=== PATIENT | female | born 1980 | race Caucasian/White ===

== ENCOUNTER 2017-02-03 10:05 | Emergency (ER) | payer SELFPAY ==
[2017-02-03 11:06] LABS: APPEARANCE SLT CLOUDY (CLEAR); BILIRUBIN NEGATIVE (NEGATIVE); COLOR YELLOW (YELLOW); GLUCOSE NEGATIVE (NEGATIVE); KETONE NEGATIVE (NEGATIVE); LEUKOCYTE ESTERASE 2+ (NEGATIVE); NITRITE NEGATIVE (NEGATIVE); PROTEIN NEGATIVE (NEGATIVE); RED CELLS - URINE 0-5 /hpf (0-5); SPECIFIC GRAVITY 1.015 (1.005-1.020); UROBILINOGEN NORMAL (NORMAL)
[2017-02-03 11:07] LABS: BACTERIA MODERATE /hpf (NONE SEEN); MUCUS <1+ /lpf (NONE SEEN)
[2017-02-03 11:24] LABS: HCG SERUM POSITIVE (NEGATIVE)
[2017-02-03 12:05] LABS: BASOPHILS 0.1 % (0-2); EOSINOPHILS 0.3 % (0-7); HEMATOCRIT 38.9 % (36.0-48.0); HEMOGLOBIN 13.1 g/dL (12-16); IMMATURE GRANULOCYTES 0.2 % (0-5); LYMPHOCYTES 23.5 % (15-50); MCHC 33.7 g/dL (31.0-37.0); MCV 92.2 fL (80.0-100.0); MONOCYTES 5.8 % (2-11); NEUTROPHILS 70.1 % (40-80); RBC 4.22 10x6/uL (4.00-5.40); RDW 13.6 % (11.5-14.5); WBC 8.7 10x3/uL (4.8-10.8)
[2017-02-03 12:07] LABS: PLATELET COUNT 217 10x3/uL (130-400)
== END 2017-02-03 13:32 | disposition home or self-care (01) ==
LOC: D.ER 10:05
PROVIDERS: Emergency Medicine
DX: O23.41 Unspecified infection of urinary tract in pregnancy, first trimester (principal); Z3A.11 11 weeks gestation of pregnancy

== ENCOUNTER → 2017-06-15 16:58 | Outpatient (CLI) | payer MEDICAID | END | disposition home or self-care (01) | LOC: D.LDO 16:58 | DX: O26.899 Other specified pregnancy related conditions, unspecified trimester (principal); Z3A.00 Weeks of gestation of pregnancy not specified ==

== ENCOUNTER → 2017-07-29 10:46 | Outpatient (CLI) | payer MEDICAID ==
[~2017-07-29 10:46] MED LIST: HYDROCODON-ACE1 EAC7 PO; MOTRIN600 MG PO; PRENATAL COMPLE1 TAB PO
[2017-08-25 13:34] VITALS: BMI 30.8
== END | disposition home or self-care (01) ==
LOC: D.LDO 10:46
DX: O26.893 Other specified pregnancy related conditions, third trimester (principal); Z3A.36 36 weeks gestation of pregnancy

== ENCOUNTER 2017-08-24 09:28 | Inpatient (IN) | payer MEDICAID ==
[~2017-08-24] VITALS: Ht 162.6 cm; Wt 81.2 kg
[2017-08-24 11:05] VITALS: BP 136/75; BMI 30.8
[2017-08-24] MEDS ORDERED: PRENATAL COMPLE1 TAB PO (11:05)
[2017-08-24 11:29] LABS: HEMATOCRIT 33.8 % (36.0-48.0); HEMOGLOBIN 10.8 g/dL (12-16); MCH 28.2 pg (26.0-34.0); MCV 88.3 fL (80.0-100.0); MEAN PLATELET VOLUME 13.1 fL (7.4-10.4); RBC 3.83 10x6/uL (4.00-5.40); RDW 14.4 % (11.5-14.5); WBC 7.9 10x3/uL (4.8-10.8)
[2017-08-24 12:33] LABS: APPEARANCE CLOUDY (CLEAR); COLOR YELLOW (YELLOW)
[2017-08-24 12:34] LABS: BACTERIA FEW /hpf (NONE SEEN); BILIRUBIN NEGATIVE (NEGATIVE); EPITHELIAL CELLS 0-5 /hpf (0-5); GLUCOSE NEGATIVE (NEGATIVE); KETONE NEGATIVE (NEGATIVE); MUCUS <1+ /lpf (NONE SEEN); NITRITE NEGATIVE (NEGATIVE); PROTEIN NEGATIVE (NEGATIVE); UROBILINOGEN NORMAL (NORMAL)
[2017-08-24 19:31] VITALS: BP 124/73
[2017-08-24 22:18] VITALS: BP 124/70
[2017-08-25 07:15] LABS: BASOPHILS 0.1 % (0-2); EOSINOPHILS 0.5 % (0-7); HEMATOCRIT 31.6 % (36.0-48.0); IMMATURE GRANULOCYTES 0.2 % (0-5); LYMPHOCYTES 21.3 % (15-50); MCH 28.2 pg (26.0-34.0); MCHC 31.6 g/dL (31.0-37.0); MEAN PLATELET VOLUME 12.6 fL (7.4-10.4); MONOCYTES 7.7 % (2-11); NEUTROPHILS 70.2 % (40-80); PLATELET COUNT 130 10x3/uL (130-400); RBC 3.55 10x6/uL (4.00-5.40); RDW 14.4 % (11.5-14.5); WBC 9.6 10x3/uL (4.8-10.8)
[2017-08-25 09:09] LABS: RAPID PLASMA REAGIN Non Reactive (Non Reactive)
[2017-08-25 13:34] VITALS: Ht 162.6 cm; Wt 81.2 kg
[2017-08-25 19:45] VITALS: BP 116/69
[2017-08-26 07:30] VITALS: BP 140/83
[2017-08-26] MEDS ORDERED: MOTRIN600 MG PO (09:03)
[2017-08-26] MEDS ORDERED: HYDROCODON-ACE1 EAC7 PO (09:03)
== END 2017-08-26 17:00 | disposition home or self-care (01) | DRG 775 ==
LOC: D.LDO 09:28 → D.LD 10:35
PROVIDERS: Obstetrics & Gynecology
PROC: 10907ZC Drainage of Amniotic Fluid, Therapeutic from Products of Conception, Via Natural or Artificial Opening (ICD-10-PCS; principal; 2017-08-24)
PROC: 10E0XZZ Delivery of Products of Conception, External Approach (ICD-10-PCS; 2017-08-24)
DX: O99.824 Streptococcus B carrier state complicating childbirth (principal); Z3A.40 40 weeks gestation of pregnancy; Z37.0 Single live birth